=== PATIENT | female | born 1955 | race Caucasian/White ===

== ENCOUNTER 2021-08-31 22:24 | Emergency (ER) | payer MEDICAID ==
[~2021-08-31] VITALS: Ht 162.6 cm; Wt 54.4 kg
[2021-08-31 22:52] VITALS: BP 144/95
== END 2021-09-01 03:15 | disposition left against medical advice (07) ==
LOC: EDBD 22:24 → ER 22:24
DX: R06.02 Shortness of breath (principal); F41.9 Anxiety disorder, unspecified; Z53.21 Procedure and treatment not carried out due to patient leaving prior to being seen by health care provider
CPT/HCPCS: 93005

== ENCOUNTER 2025-10-17 09:28 | Inpatient (IN) | payer OTHER, MEDICAID ==
[~2025-10-17] VITALS: Ht 157.5 cm; Wt 59.7 kg
--- NOTE | 2025-10-17 09:48 | ECG ---
[facility] Test Date: 2025-10-17 Test Time: 09:41:21 Pat Name: EDWARDO CANDELARIO Department: [facility] ED Patient ID: [id number] Room: [address] [place] [address] Gender: F Personnel Assistant: MR RODRIGUEZB: 1955 Requested By: EBEN GUIDO Order Number: [id number] Reading MD: Kalyan Willson Measurements Intervals [place] Rate: 83 P: 80 AK: 153 QRS: 59 QRSD: 80 T: 75 QT: 384 QTc: 452 Interpretive Statements Sinus rhythm Electronically Signed On 10-19-2025 15:02:17 PST by Kalyan Willson Please click the below link to view image of tracing.
[2025-10-17 10:14] LABS: Hematocrit 41.3 % (36.0-46.0); Hemoglobin 13.6 g/dL (12.2-16.2); Mean Corpuscular Hemoglobin 28.9 pg (28.0-32.0); Mean Corpuscular Volume 87.8 fL (80.0-100.0); Nucleated Red Blood Cells % 0.0 %
--- NOTE | 2025-10-17 10:26 | DVH ---
CHEST RADIOGRAPH Indication: sob Technique: Single frontal view of the chest was obtained COMPARISON: None FINDINGS: Lines and Tubes: None Lungs: Clear Pleura: No effusion. No pneumothorax. Cardiomediastinal contours: Unremarkable Bones: Unremarkable IMPRESSION: No acute disease.
[2025-10-17 10:27] LABS: Chloride 104 mmol/L (98-107); Potassium 4.2 mmol/L (3.5-5.1); Sodium 138 mmol/L (136-145)
[2025-10-17 10:28] LABS: Anion Gap 7 (5-15); Carbon Dioxide 27 mmol/L (20-31)
[2025-10-17 10:29] LABS: Calcium 9.4 mg/dL (8.7-10.4)
[2025-10-17 10:33] LABS: BUN/Creatinine Ratio 10.8 (10.0-20.0); Blood Urea Nitrogen 11 mg/dL (9-23); Glucose 99 mg/dL (74-106)
--- NOTE | 2025-10-17 10:33 | ED.PDOC ---
SOB-HPI HPI Comments This is a 69 year-old female who presents to the ED with a chief complaint of SOB with wheezing for X2 days. Patient reports gasping for air, with no known relief. Patient has a social history of smoking cigarettes daily. Patient has no further complaints at this time and denies further symptoms of chest pain, dizziness, weakness, cough, or N/V. Chief Complaint: Shortness of Breath Time Seen by MD: 10:30 Primary Care Provider: NONE Reviewed notes: Nurses Notes, Medications, Allergies Information Source: Patient Mode of Arrival: Ambulatory Severity: Moderate Timing: Days Duration: Since onset Context: At Rest PE Risk Factors: None History of: None Prehospital treatment: None Modifying Factors: Nothing Associated Signs and Symptoms: Wheeze Past Medical History PAST MEDICAL HISTORY: Denies Surgical History: Denies all surgeries COTTON PULLER History: Denies all COTTON PULLER Hx Family History Family History: Unknown Social History Smoker: Cigarettes Alcohol: Denies ETOH Use Drugs: Denies Drug Use Lives In: Home Constitutional: denies: chills, diaphoresis, fatigue, fever, malaise, sweats, weakness, others EENTM: denies: blurred vision, double vision, ear bleeding, ear discharge, ear drainage, ear pain, ear ringing, eye pain, eye redness, hearing loss, mouth pain, mouth swelling, nasal discharge, nose bleeding, nose congestion, nose pain, photophobia, tearing, throat pain, throat swelling, voice changes, others Respiratory: reports: SOB at rest, shortness of breath, SOB with excertion, wheezing; denies: cough, hemoptysis, orthopnea, stridor, others Cardiovascular: denies: chest pain, dizzy spells, diaphoresis, Dyspnea on exertion, edema, irregular heart beat, left arm pain, lightheadedness, palpitations, PND, syncope, others Gastrointestinal: denies: abdomen distended, abdominal pain, blood streaked bowels, constipated, diarrhea, dysphagia, difficulty swallowing, hematemesis, melena, nausea, poor appetite, poor fluid intake, rectal bleeding, rectal pain, vomiting, others Genitourinary: denies: abnormal vagina bleeding, burning, dyspareunia, dysuria, flank pain, frequency, hematuria, incontinence, pain, , vagina discharge, urgency, others Neurological: denies: dizziness, fainting, headache, left sided numbness, left sided weakness, numbness, paresthesia, pre-existing deficit, right sided numbness, right sided weakness, seizure, speech problems, tingling, tremors, weakness, others Musculoskeletal: denies: back pain, gout, joint pain, joint swelling, muscle pain, muscle stiffness, neck pain, others Integumetry: denies: bruises, change in color, change in hair/nails, dryness, laceration, lesions, lumps, rash, wounds, others Allergic/Immunocompromised: denies: Difficulty Healing, Frequent Infections, Hives, Itching, others Hematologic/Lymphatic: denies: anemia, blood clots, easy bleeding, easy bruising, swollen glands, others Endocrine: denies: excessive hunger, excessive sweating, excessive thirst, excessive urination, flushing, intolerance to cold, intolerance to heat, unexplained weight gain, unexplained weight loss, others Psychiatric: denies: anxiety, bipolar disorder, depression, hopeless, panic disorder, schizophrenia, sleepless, suicidal, others All Other Systems: Reviewed and Negative Physical Exam General Appearance: Moderate Distress HEENT: Normal ENT Inspection, Pharynx Normal, TMs Normal Neck: Full Range of Motion, Non-Tender, Normal, Normal Inspection Respiratory: Accessory Muscle Use, Respiratory Distress, Wheezing Cardiovascular: No Edema, No JVD, No Murmur, No Gallop, Normal Peripheral Pulses, Regular Rate/Rhythm Breast Exam: Deferred Gastrointestinal: No Organomegaly, Non Tender, No Pulsatile Mass, Normal Bowel Sounds, Soft Genitalia: Deferred Pelvic: Deferred Rectal: Deferred Extremities: No calf tenderness, Normal capillary refill, Normal inspection, Normal range of motion, Non-tender, No pedal edema Musculoskeletal : Apperance: Normal Neurologic: Alert, lens coating technician II-XII nml as Tested, No Motor Deficits, Normal Affect, Normal Mood, No Sensory Deficits Cerebellar Function: Normal Reflexes: Normal Skin: Dry, Normal Color, Warm Peripheral Pulses: 3+ Radial (R), 3+ Radial (L) Lymphatic: No Adenopathy EKG EKG : Pulse Rate (adult): 83 [place]: Normal Cardiac Rhythm: NSR Block: None Hypertrophy: None ST: Normal Was a procedure done? Was a procedure done?: No Differential Dx Differential Diagnosis: Anxiety, Asthma, Bronchitis, CHF, COPD, Pneumonia, Sinusitis, Pharyngitis, URI X-Ray, Labs, Meds, VS Vital Signs Date Time Temp Pulse Resp B/P (MAP) Pulse Ox O2 Delivery O2 Flow Rate FiO2 10/17/25 11:01 20 94 Nasal Cannula* 2 28 10/17/25 10:54 83 10/17/25 09:41 83 10/17/25 09:29 97.9 87 20 149/115 96 97.9 Lab Test 10/17/25 10:45 10/17/25 10:00 Range/Units Troponin I High Sensitivity 5 6 </=34 ng/L White Blood Count 11.2 H 4.4-10.8 10^3/uL Red Blood Count 4.71 4.0-5.20 10^6/uL Hemoglobin 13.6 12.2-16.2 g/dL Hematocrit 41.3 36.0-46.0 % Mean Corpuscular Volume 87.8 80.0-100.0 fL Mean Corpuscular Hemoglobin 28.9 28.0-32.0 pg Mean Corpuscular Hemoglobin Concent 33.0 32.0-36.0 g/dL Red Cell Distribution Width 14.5 H 11.8-14.3 % Platelet Count 324 140-450 10^3/uL Mean Platelet Volume 8.2 6.9-10.8 fL Neutrophils (%) (Auto) 82.9 H 37.0-80.0 % Lymphocytes (%) (Auto) 7.4 L 10.0-50.0 % Monocytes (%) (Auto) 3.7 0.0-12.0 % Eosinophils (%) (Auto) 5.3 0.0-7.0 % Basophils (%) (Auto) 0.7 0.0-2.0 % Neutrophils # (Auto) 9.3 H 1.6-8.6 10 ^3/uL Lymphocytes # (Auto) 0.8 0.4-5.4 10 ^3/uL Monocytes # (Auto) 0.4 0-1.3 10 ^3/uL Eosinophils # (Auto) 0.6 0-0.8 10 ^3/uL Basophils # (Auto) 0.1 0-0.2 10 ^3/uL Nucleated Red Blood Cells 0.0 % Sodium Level 138 136-145 mmol/L Potassium Level 4.2 3.5-5.1 mmol/L Chloride Level 104 98-107 mmol/L Carbon Dioxide Level 27 20-31 mmol/L Anion Gap 7 5-15 Blood Urea Nitrogen 11 9-23 mg/dL Creatinine 1.02 0.550-1.02 mg/dL Glomerular Filtration Rate Calc 60 >90 mL/min BUN/Creatinine Ratio 10.8 10.0-20.0 Serum Glucose 99 74-106 mg/dL Calcium Level 9.4 8.7-10.4 mg/dL Current Medications Medications (Trade) Dose Ordered Sig/Juan Carlos Route Start Time Stop Time Status Last Admin Albuterol (Ventolin Medneb) 5 mg ONCE ONCE NEB 10/17/25 10:45 10/17/25 10:46 DC 10/17/25 11:00 Ipratropium [place] (Atrovent Medneb) 0.5 mg ONCE ONCE NEB 10/17/25 10:45 10/17/25 10:46 DC 10/17/25 11:01 [place] [id number] Ph: [phone] DIAGNOSTIC IMAGING Diagnostic Imaging Report : [id number] Signed PATIENT: EDWARDO CANDELARIO ACCT: [id number] UNIT: [id number] : 1955 LOC: ER ROOM / BED: / AGE / SEX: 69 / F ADM STATUS: REG ER SERVICE [id number] ORDERING PHYSICIAN: EBEN GUIDO MD PROCEDURE(s): CXRP - CHEST PORTABLE REASON: sob ORDER NUMBER(s): [id number], ACCESSION NUMBER(s): [id number] CHEST RADIOGRAPH Indication: sob Technique: Single frontal view of the chest was obtained COMPARISON: None FINDINGS: Lines and Tubes: None Lungs: Clear Pleura: No effusion. No pneumothorax. Cardiomediastinal contours: Unremarkable Bones: Unremarkable IMPRESSION: No acute disease. Patient alert. Complaining of shortness a breath. Chest x-ray reviewed does not show any acute changes. Placed on oxygen. Continues to have wheezing. Was given steroid. Was given breathing treatment. Continues to smoke cigarettes. Counseled patient on effects of smoking for 15 minutes. Explained to the patient. Continue monitoring. Time of 1ST Reevaluation: 11:00 Reevaluation 1ST: Unchanged Patient Education/Counseling: Diagnosis, Treatment Family Education/Counseling: No Family Present SEPSIS Sepsis Screen Date sepsis recognized/suspect: Oct 17, 2025 Time Sepsis recognized/suspect: 928 Recent Procedure: No On Antibiotic Therapy: No Respiratory Rate >20: No Heart Rate >90: No Temp<36 C (96.8 F) or >38.3 C: No SBP <90 or MAP <65 mmHG: No New Acute Mental Status Change: No Is the patient on CPAP, BIPAP,: No Physician Orders Chest Portable (10/17/25 09:43) Urinalysis (10/17/25 09:43) Troponin-I Hs (10/17/25 12:43) Azithromycin 500mg/250ml (Zithromax 500m (10/17/25 11:30) Vital Signs Date Time Temp Pulse Resp B/P (MAP) Pulse Ox O2 Delivery O2 Flow Rate FiO2 10/17/25 11:01 20 94 Nasal Cannula* 2 28 10/17/25 10:54 83 10/17/25 09:41 83 10/17/25 09:29 97.9 87 20 149/115 96 97.9 Laboratory Tests Test 10/17/25 10:00 White Blood Count 11.2 10^3/uL (4.4-10.8) H Medications Medications Dose Ordered Sig/Juan Carlos Route Start Time Stop Time Status Last Admin Dose Admin Albuterol 5 mg ONCE ONCE NEB 10/17/25 10:45 10/17/25 10:46 DC 10/17/25 11:00 Ipratropium [place] 0.5 mg ONCE ONCE NEB 10/17/25 10:45 10/17/25 10:46 DC 10/17/25 11:01 Departure 1 Departure Time of Disposition: 11:20 Impression: Primary Impression: Acute respiratory failure Qualified Codes: J96.01 - Acute respiratory failure with hypoxia Additional Impression: Pneumonitis Disposition: ADMITTED INPATIENT Admit to: Med Surg Condition: Guarded Critical Care Note Critical Care Time?: Yes (90 min-critical care time only) Stability Stability form required: No Heart Score Heart Score: Heart Score Response (Comments) Value History Slightly Suspicious 0 EKG Normal 0 Age >65 2 Risk Factors No known risk factors 0 Troponin Normal limit 0 Total 2 I personally scribed for EBEN GUIDO MD ([email or web address]) on 10/17/25 at 10:33. Electronically submitted by Carissa Britton ([email or web address]). I personally scribed for EBEN GUIDO MD ([email or web address]) on 10/17/25 at 10:52. Electronically submitted by Ashley Dyer ([email or web address] [email or web address]). I personally scribed for EBEN GUIDO MD ([email or web address]) on 10/17/25 at 10:54. Electronically submitted by Ashley Dyer ([email or web address]). I personally scribed for EBEN GUIDO MD ([email or web address]) on 10/17/25 at 12:32. Electronically submitted by Ashley Dyer ([email or web address] [email or web address]). EBEN GUIDO MD Oct 17, 2025 10:33
[2025-10-17] MEDS: ALBUTEROL SULF 2.5 MG/0.5ML(0.5%) NEB SOLN NEB ONE (11:00)
[2025-10-17] MEDS: IPRATROPIUM BROM 0.5 MG/2.5ML INH SOL NEB ONE (11:01)
[2025-10-17 14:31] VITALS: PULSE 86; RESP 16; O2SAT 100
[2025-10-17 15:00] VITALS: BP 148/86; PULSE 78; RESP 16; TEMP 98; O2SAT 100
[2025-10-17] MEDS: methylPREDNISolone SOD SUCC 125 MG/2 ML VL IV ONE (15:01)
[2025-10-17] MEDS ORDERED: ACETAMINOPHEN 325 MG TAB PO PRN (15:30)
[2025-10-17] MEDS: AZITHROMYCIN 500MG/250ML 250 ML IV ONE (15:34)
--- NOTE | 2025-10-17 15:46 | DVHHP2 ---
History of Present Illness History of Present Illness This is a 69-year-old female with PMHx of active smoking (16 cigarettes/day with ~50-year smoking history), GERD, and anxiety, who presents with 2 days of progressive shortness of breath, productive cough with green sputum, and wheezing. She denies fever, chills, chest pain, palpitations, hemoptysis, orthopnea, lower extremity swelling, sick contacts, or recent travel. No home oxygen use and no prior COPD diagnosis on record, but she reports chronic cough related to her long smoking history. She has not seen a physician for years and has never undergone lung cancer screening despite meeting criteria. Symptoms worsened, limiting her ability to walk, so she came to the ED. She denies recent antibiotic or steroid use. PMHx: GERD, anxiety, active smoking. PSHx: Denies. Meds: Only medication for GERD per patient Allergies: Codeine and oxycodone FHx: Noncontributory. SHx: Smokes ~16 cigarettes/day for ~50 years. Denies alcohol or illicit drugs. Lives independently. ROS: Negative except as in HPI. Review of Systems Allergies: Coded Allergies: Codeine (Verified Allergy, Unknown, 01/24/11) Oxycodone (Verified Allergy, Unknown, 01/24/11) Medications Current Medications Medications Dose Ordered Sig/Juan Carlos Route Start Time Stop Time Status Last Admin Dose Admin Acetaminophen 650 mg Q6HP PRN PO 10/17/25 15:30 Enoxaparin Sodium 40 mg DAILY SC 10/18/25 10:00 Ceftriaxone Sodium 50 ml @ 100 mls/hr DAILY@09 IV 10/18/25 09:00 Azithromycin 250 ml @ 125 mls/hr DAILY IV 10/18/25 10:00 UNV Albuterol 2.5 mg Q6HPRN PRN NEB 10/17/25 15:30 Ipratropium [place] 0.5 mg Q6HWA NEB 10/17/25 18:00 Methylprednisolone Sodium Succinate 40 mg BID IV 10/17/25 22:00 Exam Vital Signs Vital Signs Date Time Temp Pulse Resp B/P (MAP) Pulse Ox O2 Delivery O2 Flow Rate FiO2 10/17/25 14:31 98.7 78 16 148/86 (106) 100 98.7 10/17/25 14:31 Nasal Cannula 2.0 10/17/25 14:31 28 Exam General: Alert, oriented, mildly dyspneic but not in acute distress. HEENT: PERRLA, EOMI, MMM, no JVD. Neck: Supple, no lymphadenopathy. Lungs: Diffuse expiratory wheezes bilaterally, prolonged expiratory phase, decreased air movement at bases, no crackles. Cardiovascular: RRR, no murmurs, rubs, or gallops. Abdomen: Soft, NTND, normal bowel sounds. Extremities: No edema, pulses 2+. Neuro: Nonfocal. Skin: Warm, dry, no cyanosis. Labs/Xrays Labs Test 10/17/25 13:03 10/17/25 10:00 Range/Units Troponin I High Sensitivity 6 </=34 ng/L White Blood Count 11.2 H 4.4-10.8 10^3/uL Red Blood Count 4.71 4.0-5.20 10^6/uL Hemoglobin 13.6 12.2-16.2 g/dL Hematocrit 41.3 36.0-46.0 % Mean Corpuscular Volume 87.8 80.0-100.0 fL Mean Corpuscular Hemoglobin 28.9 28.0-32.0 pg Mean Corpuscular Hemoglobin Concent 33.0 32.0-36.0 g/dL Red Cell Distribution Width 14.5 H 11.8-14.3 % Platelet Count 324 140-450 10^3/uL Mean Platelet Volume 8.2 6.9-10.8 fL Neutrophils (%) (Auto) 82.9 H 37.0-80.0 % Lymphocytes (%) (Auto) 7.4 L 10.0-50.0 % Monocytes (%) (Auto) 3.7 0.0-12.0 % Eosinophils (%) (Auto) 5.3 0.0-7.0 % Basophils (%) (Auto) 0.7 0.0-2.0 % Neutrophils # (Auto) 9.3 H 1.6-8.6 10 ^3/uL Lymphocytes # (Auto) 0.8 0.4-5.4 10 ^3/uL Monocytes # (Auto) 0.4 0-1.3 10 ^3/uL Eosinophils # (Auto) 0.6 0-0.8 10 ^3/uL Basophils # (Auto) 0.1 0-0.2 10 ^3/uL Nucleated Red Blood Cells 0.0 % Sodium Level 138 136-145 mmol/L Potassium Level 4.2 3.5-5.1 mmol/L Chloride Level 104 98-107 mmol/L Carbon Dioxide Level 27 20-31 mmol/L Anion Gap 7 5-15 Blood Urea Nitrogen 11 9-23 mg/dL Creatinine 1.02 0.550-1.02 mg/dL Glomerular Filtration Rate Calc 60 >90 mL/min BUN/Creatinine Ratio 10.8 10.0-20.0 Serum Glucose 99 74-106 mg/dL Calcium Level 9.4 8.7-10.4 mg/dL SEPSIS Sepsis Screen Date sepsis recognized/suspect: Oct 17, 2025 Time Sepsis recognized/suspect: 1430 Recent Procedure: No On Antibiotic Therapy: No Respiratory Rate >20: No Heart Rate >90: No Temp<36 C (96.8 F) or >38.3 C: No SBP <90 or MAP <65 mmHG: No New Acute Mental Status Change: No Is the patient on CPAP, BIPAP,: No Physician Orders Chest Portable (10/17/25 09:43) Urinalysis (10/17/25 09:43) Admit (10/17/25 15:29) Code Status (10/17/25 15:29) Vital Signs .PER UNIT PROTOCOL (10/17/25 15:29) Review Orders With Adm.Md (10/17/25 15:29) Regular Diet (10/17/25 Dinner) Acetaminophen Tablet (Tylenol Tablet) (10/17/25 15:30) Notify Md Of Changes From Base (10/17/25 15:29) Advance Directive (10/17/25 15:29) Urinalysis (10/17/25 15:29) Patient Condition (10/17/25 15:29) Allergies (10/17/25 15:29) Drug Screen (10/17/25 15:29) Ambulate Every 4hours Q4H (10/17/25 15:29) Hemoglobin A1c (10/17/25 15:29) Enoxaparin Sodium (Lovenox) (10/18/25 10:00) Oxygen By Nasal Cannula (10/17/25 15:29) Stat Ekg For Chest Pain (10/17/25 15:29) Notify Md Of Changes From Base (10/17/25 15:29) Corporate Lawyer For 24 Hours (10/17/25 15:29) Emergency Dysrhythmia Protocol (10/17/25 15:29) Rhythm Strips Once Every Shift (10/17/25 15:29) Ceftriaxone 1gm/50ml (Rocephin) (10/18/25 09:00) Azithromycin 500mg/250ml (Zithromax 500m (10/18/25 10:00) Albuterol Medneb (Ventolin Medneb) (10/17/25 15:30) Ipratropium Medneb (Atrovent Medneb) (10/17/25 18:00) Methylprednisolone Sod Succ (Solu Medrol (10/17/25 22:00) Chest Without Contrast (10/17/25 15:29) Vital Signs Date Time Temp Pulse Resp B/P (MAP) Pulse Ox O2 Delivery O2 Flow Rate FiO2 10/17/25 14:31 98.7 78 16 148/86 (106) 100 98.7 10/17/25 14:31 86 16 100 Nasal Cannula 2.0 10/17/25 14:31 86 16 100 Nasal Cannula* 2 28 10/17/25 11:01 20 94 Nasal Cannula* 2 28 10/17/25 10:54 83 10/17/25 09:41 83 10/17/25 09:29 97.9 87 20 149/115 96 97.9 Laboratory Tests Test 10/17/25 10:00 White Blood Count 11.2 10^3/uL (4.4-10.8) H Medications Medications Dose Ordered Sig/Juan Carlos Route Start Time Stop Time Status Last Admin Dose Admin Albuterol 5 mg ONCE ONCE NEB 10/17/25 10:45 10/17/25 10:46 DC 10/17/25 11:00 5 MG Azithromycin 250 ml @ 125 mls/hr ONCE ONCE IV 10/17/25 11:30 10/17/25 13:29 DC 10/17/25 15:34 125 MLS/HR Ceftriaxone Sodium 50 ml @ 100 mls/hr ONCE ONCE IV 10/17/25 11:30 10/17/25 11:59 DC 10/17/25 15:01 100 MLS/HR Ipratropium [place] 0.5 mg ONCE ONCE NEB 10/17/25 10:45 10/17/25 10:46 DC 10/17/25 11:01 0.5 MG Methylprednisolone Sodium Succinate 125 mg ONCE ONCE IV 10/17/25 10:45 10/17/25 10:46 DC 10/17/25 15:01 125 MG Assessment/Plan Assessment/Plan ASSESSMENT & PLAN A 69-year-old female with PMHx of heavy smoking, GERD, and anxiety presenting with acute dyspnea and productive cough concerning for COPD exacerbation. 1. COPD exacerbation 1.2 Acute respiratory failure Clinical picture consistent with COPD exacerbation given wheezing, worsening cough, and sputum change. Green sputum raises concern for infectious trigger. No fever, but WBC mildly elevated. CXR normal. Long smoking history places her at high risk for malignancy. Admit to Med/Surg. Continue ceftriaxone and azithromycin. IV steroids. DuoNebs Q6h with PRN. Supplemental O2 to maintain SpO2 8892%. Get CT chest to evaluate for pneumonia/mass. Obtain respiratory viral panel, sputum culture Manager Leasing on smoking cessation and offer nicotine patch. 2. GERD Protonix PO 3. Anxiety Stable. Continue supportive care; outpatient follow-up recommended. Disposition / Preventive care Admit to medical service. Strong counseling on smoking cessation. Case with Dr Celis Plan discussed with: Patient, Other (rn ) My Orders Orders - TIANA WILLIS RESIDENT Procedure Category Date Status Time Admit ADMIT 10/17/25 Transmitted 15:29 Code Status CODE 10/17/25 Transmitted 15:29 Vital Signs [facility] 10/17/25 In Process 15:29 Review Orders With AGUSTÍN 10/17/25 In Process Adm. 15:29 Regular Diet DIET 10/17/25 Transmitted Dinner Acetaminophen Tablet PHA 10/17/25 In Process (Tylenol Tablet) 15:30 Notify Of Changes [facility] 10/17/25 In Process From Base 15:29 Advance Directive AGUSTÍN 10/17/25 In Process 15:29 Urinalysis LAB 10/17/25 Logged 15:29 Patient Condition ORDERS 10/17/25 Transmitted 15:29 Allergies AGUSTÍN 10/17/25 In Process 15:29 Drug Screen LAB 10/17/25 Logged 15:29 Ambulate Every 4hours AGUSTÍN 10/17/25 In Process 15:29 Hemoglobin A1c LAB 10/17/25 In Process 15:29 Enoxaparin Sodium PHA 10/18/25 In Process (Lovenox) 10:00 Oxygen By Nasal RT 10/17/25 Transmitted Cannula 15:29 Stat Ekg For Chest [facility] 10/17/25 In Process Pain 15:29 Notify Of Changes [facility] 10/17/25 In Process From Base 15:29 Corporate Lawyer For [facility] 10/17/25 In Process 24 Hours 15:29 Emergency Dysrhythmia [facility] 10/17/25 In Process Protocol 15:29 Rhythm Strips Once [facility] 10/17/25 In Process Every Shift 15:29 Ceftriaxone 1gm/50ml PHA 10/18/25 In Process (Rocephin) 09:00 Azithromycin PHA 10/18/25 Logged 500mg/250ml 10:00 Albuterol Medneb PHA 10/17/25 In Process (Ventolin Medneb) 15:30 Ipratropium Medneb PHA 10/17/25 In Process (Atrovent Medneb) 18:00 Methylprednisolone PHA 10/17/25 In Process Sod Succ (Solu Medrol 22:[address] 10/17/25 Logged 15:29 Date of Service: Oct 17, 2025 Billing Provider: TEDDY CELIS MD Common Visit Codes: [id number] INP/OBS CARE (HIGH) TIANA WILLIS RESIDENT Oct 17, 2025 15:46
--- NOTE | 2025-10-17 16:56 | DVH ---
Exam: CT CHEST WITHOUT CONTRAST Reason for study/Clinical History: ACTIVE SMOKER Comparison Study: XY CHEST PORTABLE on DOS: 10/17/25 Exam Date: 10/17/2025 03:45 PM TECHNIQUE: Multidetector CT of the chest was performed from the lung apices to the upper abdomen without the use of intravenous contract. Axial, coronal and sagittal multiplanar reformats were performed. Radiation Dose Information: CT Dose: CTDI volume is 6.49 mGy. Dose-length product is 242.72 mGy*cm The dose indicators for CT are the volume Computed Tomography (CT) Dose Index (CTDIvol) and the Dose Length Product (DLP), and are measured in units of mGy and mGy-cm, respectively. These indicators are not patient dose, but values generated from the CT scanner acquisition factors. The report includes radiation exposure data for exposures received during this examination. Findings: Lower neck: Unremarkable. Lungs and Pleura: No consolidation or suspicious pulmonary nodules. No pleural effusions. Lymph nodes: No mediastinal, hilar, or axillary lymphadenopathy. Cardiovascular and Mediastinum: No significant pericardial effusion. Scattered coronary calcifications. Osseous and soft tissues: No suspicious osseous lesions. Upper abdomen: Diffuse masslike thickening of the left adrenal gland. Small left renal cysts. Cholecystectomy. IMPRESSION: No suspicious lung nodule. No focal consolidation. Diffuse left adrenal masslike thickening. Recommend dedicated CT abdomen adrenal protocol for further evaluation.
[2025-10-17 17:09] LABS: COVID19 ANTIGEN SOFIA FIA NEGATIVE (NEGATIVE)
[2025-10-17 17:19] LABS: Urine Protein, UAD 2+ (Negative)
[2025-10-17 17:28] LABS: Amphetamine Screen, Urine Pos (NEGATIVE); Barbiturate Scree,Urine Neg (NEGATIVE); Benzodiazephine Screen, Urine Neg (NEGATIVE); Cannabinoid Screen, Urine Neg (NEGATIVE); Cocaine Screen, Urine Neg (NEGATIVE); Opiate Scree,Urine Neg (NEGATIVE); Phencyclidine Screen, Urine Neg (NEGATIVE)
[2025-10-17 18:50] VITALS: BP 135/93; TEMP 97.8
[2025-10-17 19:28] VITALS: PULSE 82; RESP 18; O2SAT 97
[2025-10-17] MEDS: ALBUTEROL SULF 2.5 MG/0.5ML(0.5%) NEB SOLN NEB PRN (19:28)
[2025-10-17] MEDS: IPRATROPIUM BROM 0.5 MG/2.5ML INH SOL NEB SCH (19:28)
[2025-10-17 19:36] VITALS: PULSE 84; RESP 18; O2SAT 100
[2025-10-17 19:54] VITALS: RESP 22
[2025-10-17] MEDS ORDERED: methylPREDNISolone SOD SUCC 40 MG/ML VL IV SCH (22:00)
[2025-10-18] MEDS ORDERED: PANTOPRAZOLE 40 MG TAB PO SCH (06:00)
[2025-10-18] MEDS ORDERED: ENOXAPARIN SOD 40 MG/0.4 ML SYRINGE SC SCH (10:00)
[2025-10-18] MEDS ORDERED: AZITHROMYCIN 500MG/250ML 250 ML IV SCH (10:00)
--- NOTE | 2025-10-18 11:43 | DVHDS2 ---
Discharge Summary Date of Admission Oct 17, 2025 at 15:29 Date of Discharge: Oct 17, 2025 Admitting Diagnosis acute respiratory failure Labs/Diagnostic Data: Laboratory Results Test 10/17/25 16:29 10/17/25 16:28 10/17/25 16:21 10/17/25 13:03 Urine Opiates Screen Neg (NEGATIVE) Urine Fentanyl Screen Neg (NEGATIVE) Urine Barbiturates Screen Neg (NEGATIVE) Urine Phencyclidine Screen Neg (NEGATIVE) Urine Amphetamines Screen Pos (NEGATIVE) Urine Benzodiazepines Screen Neg (NEGATIVE) Urine Cocaine Screen Neg (NEGATIVE) Urine Cannabinoids Screen Neg (NEGATIVE) Urine Color Yellow (Yellow) Urine Clarity Turbid (Clear) Urine pH 5.5 (5.0-9.0) Urine Specific [place] 1.025 (1.001-1.035) Urine Protein 2+ (Negative) Urine Ketones Trace (Negative) Urine Blood Negative /uL (Negative) Urine Nitrite Negative (Negative) Urine Bilirubin Negative (Negative) Urine Urobilinogen 2 mg/dL (Negative) Urine Leukocyte Esterase Negative /uL (Negative) Urine RBC 3 /hpf (0 - 4) Urine Microscopic WBC 9 /HPF (0-5) Urine Squamous Epithelial Cells Few /hpf (<5) Urine Bacteria None seen /hpf (None Seen) Urine Hyaline Casts Mod /lpf (0 - 2) Urine Mucus Few (None Seen) Urine Glucose Normal mg/dL (Normal) Influenza Type A Antigen Negative (Negative) Influenza Type B Antigen Negative (Negative) SARS-CoV-2 Antigen (Rapid) Negative (NEGATIVE) Troponin I High Sensitivity 6 ng/L (</=34) Test 10/17/25 10:00 White Blood Count 11.2 10^3/uL (4.4-10.8) Red Blood Count 4.71 10^6/uL (4.0-5.20) Hemoglobin 13.6 g/dL (12.2-16.2) Hematocrit 41.3 % (36.0-46.0) Mean Corpuscular Volume 87.8 fL (80.0-100.0) Mean Corpuscular Hemoglobin 28.9 pg (28.0-32.0) Mean Corpuscular Hemoglobin Concent 33.0 g/dL (32.0-36.0) Red Cell Distribution Width 14.5 % (11.8-14.3) Platelet Count 324 10^3/uL (140-450) Mean Platelet Volume 8.2 fL (6.9-10.8) Neutrophils (%) (Auto) 82.9 % (37.0-80.0) Lymphocytes (%) (Auto) 7.4 % (10.0-50.0) Monocytes (%) (Auto) 3.7 % (0.0-12.0) Eosinophils (%) (Auto) 5.3 % (0.0-7.0) Basophils (%) (Auto) 0.7 % (0.0-2.0) Neutrophils # (Auto) 9.3 10 ^3/uL (1.6-8.6) Lymphocytes # (Auto) 0.8 10 ^3/uL (0.4-5.4) Monocytes # (Auto) 0.4 10 ^3/uL (0-1.3) Eosinophils # (Auto) 0.6 10 ^3/uL (0-0.8) Basophils # (Auto) 0.1 10 ^3/uL (0-0.2) Nucleated Red Blood Cells 0.0 % Sodium Level 138 mmol/L (136-145) Potassium Level 4.2 mmol/L (3.5-5.1) Chloride Level 104 mmol/L (98-107) Carbon Dioxide Level 27 mmol/L (20-31) Anion Gap 7 (5-15) Blood Urea Nitrogen 11 mg/dL (9-23) Creatinine 1.02 mg/dL (0.550-1.02) Glomerular Filtration Rate Calc 60 mL/min (>90) BUN/Creatinine Ratio 10.8 (10.0-20.0) Serum Glucose 99 mg/dL (74-106) Hemoglobin A1c 5.2 % A1C (<5.7) Calcium Level 9.4 mg/dL (8.7-10.4) Other Laboratory Tests 10/17/25 10:00 Brief Hx & Hospital Course: A 69-year-old female with a history of heavy smoking, GERD, and anxiety presented with two days of progressive shortness of breath, productive cough with green sputum, and wheezing. She denied fever, chest pain, or hemoptysis. Exam revealed diffuse expiratory wheezes and decreased air movement, and labs showed mild leukocytosis (WBC 11.2). Chest X-ray was unremarkable. The clinical picture was consistent with a COPD exacerbation, likely her first recognized episode, with suspected infectious trigger. She was started on ceftriaxone, azithromycin, IV steroids, and scheduled bronchodilator therapy, with supplemental oxygen to maintain SpO? between 8892%. A CT chest and sputum culture were planned, and smoking cessation counseling was provided. During hospitalization, urine drug screen returned positive for methamphetamine. The patient was counseled extensively on the risks of leaving against medical advice and the importance of completing treatment and follow-up, including lung cancer screening and substance use counseling. Despite this, she elected to leave AMA, alert and oriented, with no acute distress. She was advised to seek immediate care if symptoms worsen and to follow up with a primary care provider for further evaluation and preventive care. Case discussed with Dr Celis Condition at Discharge: Poor Final Diagnosis/Problems List 1. COPD exacerbation 1.2 Acute respiratory failure 2. GERD 3. Anxiety 4. Meth abuse Discharge Disposition: AMA Discharge Statement: "Patient was advised to return to the ER or call 911 if any headaches, dizziness, shortness of breath, chest pain, abdominal pain, bleeding, fevers, or worsening of medical condition. Patient was counseled about treatment plan, medications, possible side effects, patientverbalized understanding. All questions were answered to the best of my ability. This discharge took greater then 30 minutes in planning, reviewing documentation, counseling the patient, and discussing with other team members." ASSESSMENT ASSESSMENT Assessment Date of Service: Oct 17, 2025 Billing Provider: TEDDY CELIS MD Common Visit Codes: NOT BILLABLE TIANA WILLIS RESIDENT Oct 18, 2025 11:43
== END 2025-10-17 20:05 | disposition left against medical advice (07) | DRG 189 ==
LOC: ER 09:28 → OVERFLOW 15:29
PROVIDERS: ATTEND Emergency Medicine
DX: J96.01 Acute respiratory failure with hypoxia (principal); J44.1 Chronic obstructive pulmonary disease with (acute) exacerbation; F15.10 Other stimulant abuse, uncomplicated; Z20.822 Contact with and (suspected) exposure to COVID-19; F17.210 Nicotine dependence, cigarettes, uncomplicated; K21.9 Gastro-esophageal reflux disease without esophagitis; F41.9 Anxiety disorder, unspecified; J98.4 Other disorders of lung; Z53.29 Procedure and treatment not carried out because of patient's decision for other reasons; Z71.6 Tobacco abuse counseling; Z88.5 Allergy status to narcotic agent
CPT/HCPCS: 36415; 71045; 71250; 80048; 80307; 81001; 83036; 84484; 85025; 87426; 87804; 93005; 94640; 96365; 96375; 99291; 99292; G0378